=== PATIENT | female | born 1975 | race Caucasian/White ===

== ENCOUNTER 2016-05-28 16:50 | Emergency (ER) | payer SELFPAY ==
[2016-05-28 17:23] VITALS: BP 123/77
--- NOTE | 2016-05-28 17:33 | ER Document Report ---
ED Medical Screen (RME) - General Stated Complaint: VAGINAL PAIN Mode of Arrival: Ambulatory Information source: Patient Notes: 41 y/o F presents to ED c/o pain to genital area. Reports hx of herpes and states feels like flare-up. I have greeted and performed a rapid initial assessment of this patient. A comprehensive ED assessment and evaluation of the patient, analysis of test results and completion of the medical decision making process will be conducted by additional ED providers. TRAVEL OUTSIDE OF THE [place] IN LAST 30 DAYS: No - Related Data Allergies/Adverse Reactions: codeine [Codeine] Allergy (Mild, Verified 05/28/16 17:32) Past Medical History Neurological Medical History: Reports: Hx Migraine Past Surgical History: Reports: Hx Tubal Ligation - Immunizations Hx Diphtheria, Pertussis, Tetanus Vaccination: No Physical Exam - Vital signs Vitals: Temp Pulse Resp BP Pulse Ox 98.2 F 80 16 123/77 96 05/28/16 17:22 05/28/16 17:22 05/28/16 17:22 05/28/16 17:22 05/28/16 17:22 - General General appearance: Appears well, Alert In distress: None Course - Vital Signs Vital signs: Temp Pulse Resp BP Pulse Ox 98.2 F 80 16 123/77 96 05/28/16 17:22 05/28/16 17:22 05/28/16 17:22 05/28/16 17:22 05/28/16 17:22
--- NOTE | 2016-05-28 18:38 | ER Document Report ---
ED GI/ - General Chief Complaint: Vaginal Pain Stated Complaint: VAGINAL PAIN Mode of Arrival: Ambulatory Information source: Patient TRAVEL OUTSIDE OF THE [place] IN LAST 30 DAYS: No - HPI Patient complains to provider of: Vaginal pain Onset: This morning Timing/Duration: Gradual Quality of pain: Burning, Sharp Severity at maximum: Severe Severity in ED: Moderate Context: denies: , Recent trauma Location: Vaginal, Vulvar Vaginal bleeding (Compared to normal period): None Menstrual period history: denies: Associated symptoms: None Exacerbated by: Movement, Other - URINATION Relieved by: Denies Similar symptoms previously: Yes - HERPES GENITALIS Recently seen / treated by doctor: No - Related Data Allergies/Adverse Reactions: codeine [Codeine] Allergy (Mild, Verified 05/28/16 17:32) Past Medical History - General Information source: Patient - Social History Smoking Status: Current Every Day Smoker Chew tobacco use (# tins/day): No Frequency of alcohol use: None Drug Abuse: None Lives with: Spouse/Significant other Family History: Reviewed & Not Pertinent Patient has suicidal ideation: No Patient has homicidal ideation: No - Past Medical History Cardiac Medical History: Reports: None Pulmonary Medical History: Reports: None Neurological Medical History: Reports: Hx Migraine Endocrine Medical History: Reports: None Renal/ Medical History: Reports: None, Other - HSV II. Denies: Hx Peritoneal Dialysis Malignancy Medical History: Reports: None GI Medical History: Reports: None Musculoskeltal Medical History: Reports None Psychiatric Medical History: Reports: None Surgical Hx: Negative Past Surgical History: Reports: Hx Tubal Ligation - Immunizations Hx Diphtheria, Pertussis, Tetanus Vaccination: No Review of Systems - Review of Systems Constitutional: No symptoms reported. denies: Chills, Fever EENT: No symptoms reported Cardiovascular: No symptoms reported Respiratory: No symptoms reported Gastrointestinal: No symptoms reported Genitourinary: See HPI Female Genitourinary: See HPI Musculoskeletal: No symptoms reported Skin: See HPI Neurological/Psychological: No symptoms reported Physical Exam - Vital signs Vitals: Temp Pulse Resp BP Pulse Ox 98.2 F 80 16 123/77 96 05/28/16 17:22 05/28/16 17:22 05/28/16 17:22 05/28/16 17:22 05/28/16 17:22 Interpretation: Normal - General General appearance: Appears well, Alert In distress: None - HEENT Head: Normocephalic Eyes: Normal Ears: Normal Nasal: Normal Mouth/Lips: Normal Mucous membranes: Normal - Respiratory Respiratory status: No respiratory distress - Cardiovascular Rhythm: Regular - Genitourinary Notes: Examination omitted at patient's request. - Extremities General upper extremity: Normal inspection General lower extremity: Normal inspection - Neurological Neuro grossly intact: Yes Cognition: Normal Orientation: AAOx4 - Psychological Associated symptoms: Normal affect, Normal mood - Skin Skin Temperature: Warm Skin Moisture: Dry Skin Color: Normal Skin Turgor: Elastic Course - Vital Signs Vital signs: Temp Pulse Resp BP Pulse Ox 98.2 F 80 16 123/77 96 05/28/16 17:22 05/28/16 17:22 05/28/16 17:22 05/28/16 17:22 05/28/16 17:22 Discharge - Discharge Clinical Impression: Herpes genitalis Qualifiers: Herpes simplex infection site: vulvovaginitis Qualified Code(s): A60.04 - Herpesviral vulvovaginitis Condition: Stable Disposition: HOME, SELF-CARE Instructions: Acyclovir ([facility]), Genital Herpes ([facility]) Prescriptions: Acyclovir [Acyclovir 400 mg Tablet] 400 mg PO TID #20 tablet Lidocaine HCl [Xylocaine 2% Jelly 5 ml Tube] 5 ml MM DAILYP PRN #1 jel PRN Reason:
== END 2016-05-28 18:50 | disposition home or self-care (01) ==
LOC: ER 16:50
DX: A60.04 Herpesviral vulvovaginitis (principal); R10.2 Pelvic and perineal pain; F17.200 Nicotine dependence, unspecified, uncomplicated; Z88.5 Allergy status to narcotic agent
CPT/HCPCS: 99283

== ENCOUNTER 2019-05-24 09:40 | Emergency (ER) | payer SELFPAY ==
[2019-05-24] MEDS ORDERED: ONDANSETRON HCL INJ/PF 4 MG/2 ML SDV IV ONE (10:06)
[2019-05-24] MEDS ORDERED: NORMAL SALINE 1000 ML 1,000 ML IV ONE (10:06)
--- NOTE | 2019-05-24 10:08 | ER Document Report ---
ED Medical Screen (RME) - General Chief Complaint: Cold Symptoms Stated Complaint: COUGH/DIZZINESS/CHILLS/NAUSEA Time Seen by Provider: 05/24/19 10:02 Mode of Arrival: Ambulatory Information source: Patient Notes: 44-year-old female patient presenting to the emergency department with cough, congestion, fevers, nausea. Patient reports symptoms started approximately 4 days ago. She states she has been taking all the lify-poh-xkwsznl medications that she can take however her symptoms have not gotten any better. Patient reports she can barely keep any water down due to her nausea. She denies any chronic medical conditions, denies any daily medications. Coarse rhonchi noted on auscultation. No wheezing. I have greeted and performed a rapid initial assessment of this patient. A com prehensive ED assessment and evaluation of the patient, analysis of test results and completion of the medical decision making process will be conducted by additional ED providers. I have specifically instructed the patient or family members with the patient to immediately return to any nursing staff should anything change in the patient's condition or with their chief complaint. TRAVEL OUTSIDE OF THE [place] IN LAST 30 DAYS: No - Related Data Allergies/Adverse Reactions: codeine [Codeine] Allergy (Mild, Verified 05/24/19 09:58) Home Medications: no home meds Past Medical History - Social History Chew tobacco use (# tins/day): No Drug Abuse: None Neurological Medical History: Reports: Hx Migraine Renal/ Medical History: Denies: Hx Peritoneal Dialysis Past Surgical History: Reports: Hx Tubal Ligation - Immunizations Hx Diphtheria, Pertussis, Tetanus Vaccination: No
[2019-05-24 10:38] LABS: APPEARANCE,URINE CLEAR; BILIRUBIN,URINE NEGATIVE (NEGATIVE); COLOR,URINE YELLOW; GLUCOSE, URINE NEGATIVE (NEGATIVE); KETONES,URINE NEGATIVE (NEGATIVE); PROTEIN,URINE NEGATIVE (NEGATIVE); URINE SPECIFIC GRAVITY 1.012; UROBILINOGEN,URINE NEGATIVE mg/dL (<2.0)
[2019-05-24] MEDS ORDERED: IBUPROFEN 800 MG TABLET PO ONE (10:46)
[2019-05-24] MEDS ORDERED: ONDANSETRON 4 MG TAB.RAPDIS PO ONE (10:46)
[2019-05-24 10:47] LABS: A TYPE INFLUENZA AG NEGATIVE (NEGATIVE); B INFLUENZA AG NEGATIVE (NEGATIVE)
--- NOTE | 2019-05-24 10:47 | ER Document Report ---
HPI - HPI Patient complains to provider of: Cough congestion nausea Time Seen by Provider: 05/24/19 10:02 Onset: Other - 4 days Quality of pain: Achy Pain Level: 3 Context: 44-year-old female with no prior history relatively healthy presents emergency department with complaints of sore throat, productive cough congestion, body aches, and nausea. She reports her sore throat is gone. She reports she coughing up some green sputum. Reports decreased appetite because she is so nauseated. Denies fever or diarrhea. Denies pain with void. Reports she has been taking zeeu-dai-wdmzibd medications without relief of symptoms. Associated Symptoms: Body/muscle aches, Productive cough, Nausea Exacerbated by: Denies Relieved by: Denies Similar symptoms previously: No Recently seen / treated by doctor: No - REPRODUCTIVE Reproductive: DENIES: : Past Medical History - General Information source: Patient Last Menstrual Period: 2 years ago - Social History Smoking Status: Current Every Day Smoker Cigarette use (# per day): Yes Chew tobacco use (# tins/day): No Drug Abuse: None Occupation: Office Family History: Reviewed & Not Pertinent Patient has suicidal ideation: No Patient has homicidal ideation: No Neurological Medical History: Reports: Hx Migraine Renal/ Medical History: Denies: Hx Peritoneal Dialysis Past Surgical History: Reports: Hx Tubal Ligation - Immunizations Hx Diphtheria, Pertussis, Tetanus Vaccination: No Vertical Provider Document - CONSTITUTIONAL Agree With Documented VS: Yes Exam Limitations: No Limitations General Appearance: WD/WN, No Apparent Distress - INFECTION CONTROL TRAVEL OUTSIDE OF THE [place] IN LAST 30 DAYS: No - HEENT HEENT: Atraumatic, Normal ENT Exam, Normocephalic, PERRLA. negative: Conjuctival Injection, Pharyngeal Erythema, Tympanic Membrane Red, Tympanic M embrane Bulging - NECK Neck: Normal Inspection, Supple. negative: Lymphadenopathy-Left, Lymphadenopathy-Right - RESPIRATORY Respiratory: Breath Sounds Normal, No Respiratory Distress - CARDIOVASCULAR Cardiovascular: Regular Rate - GI/ABDOMEN Gastrointestinal: Abdomen Soft, Abdomen Non-Tender - BACK Back: negative: CVA Tenderness-Right, CVA Tenderness-Left - MUSCULOSKELETAL/EXTREMETIES Musculoskeletal/Extremeties: RONNA MAYA - NEURO Level of Consciousness: Awake, Alert, Appropriate Motor/Sensory: No Motor Deficit - DERM Integumentary: Warm, Dry, No Rash Course - Re-evaluation Re-evalutation: 05/24/19 11:29 Laboratory 05/24/19 05/24/19 10:10 10:10 Urine Color YELLOW Urine Appearance CLEAR Urine pH 5.0 Ur Specific [place] 1.012 Urine Protein NEGATIVE Urine Glucose (UA) NEGATIVE Urine Ketones NEGATIVE Urine Blood NEGATIVE Urine Nitrite (Reflex) NEGATIVE Urine Bilirubin NEGATIVE Urine Urobilinogen NEGATIVE Leukocyte Esterase Rfl MODERATE H Urine RBC (Auto) 2 Urine WBC (Reflex) 6 Squamous Epi Cells Auto 2 Urine Mucus (Auto) RARE Urine Ascorbic Acid 20 H Urine HCG, Qual NEGATIVE Influenza A (Rapid) NEGATIVE Influenza B (Rapid) NEGATIVE Chest X-Ray 05/24/19 10:07 IMPRESSION: Chronic interstitial changes with ill-defined opacities within the left mid lung, possibly superimposed pneumonia. No dense consolidation. No significant effusion. 05/24/19 11:42 44-year-old female relatively healthy presents with productive cough nausea body aches for the past 4 days. UA with moderate leukocytes patient denies pain with void denies urinary frequency. Very few WBCs. Chest x-ray shows left mid pneumonia. Patient was instructed on these results. She is drinking p.o. fluids reports she feels a little bit better. No active coughing noted. Respiratory rate even unlabored. The patient was instructed on amoxicillin doxy Tessalon Perles and Zofran. Instructed on the importance of push fluids quit smoking take meds as prescribed. Patient does not have a primary care provider because she does not have insurance. She was instructed to return here for any concerns worsening symptoms. She verbalized understanding to all instructions patient was also [facility]. - Vital Signs Vital signs: Temp Pulse Resp BP Pulse Ox 97.9 F 90 16 113/79 95 05/24/19 10:00 05/24/19 10:00 05/24/19 10:00 05/24/19 10:00 05/24/19 10:00 - Laboratory Laboratory results interpreted by me: 05/24/19 10:10 Leukocyte Esterase Rfl MODERATE H Urine Ascorbic Acid 20 H - Diagnostic Test Radiology reviewed: Image reviewed, Reports reviewed Discharge - Discharge Clinical Impression: Cough, Pneumonia, Nausea Condition: Stable Disposition: HOME, SELF-CARE Instructions: Amoxicillin ([facility]), Antinausea Medication ([facility]), Doxycycline ([facility]), Use of Irao-Umi-Gvckgfa Ibuprofen ([facility]), Pneumonia ([facility]), Tessalon Perles ([facility]) Additional Instructions: *You have been evaluated for a cough, body aches, nausea, pneumonia *Your flu test was negative. Your chest x-ray indicates pneumonia *Take medication as prescribed *Increase fluids *Monitor your temperature, take Tylenol or motrin as indicated *Quit smoking *Follow up with a primary care provider within 1 week for recheck *Return to ED for increasing worsening condition, changes, needs, difficulty breathing, concerns Prescriptions: Amoxicillin Trihydrate [Amoxil 500 mg Capsule] 1,000 mg PO TID #60 capsule Doxycycline Monohydrate [Monodox] 100 mg PO BID #20 capsule Benzonatate [Tessalon Perles 100 mg Capsule] 100 mg PO ASDIR PRN #20 capsule PRN Reason: Forms: Smoking Cessation Education, Return to Work Referrals: [facility] [Provider Group] - Follow up in 3-5 days (call for an appointment)
--- NOTE | 2019-05-24 10:48 | RADIOLOGY REPORT (SQ) ---
EXAM DESCRIPTION: CHEST 2 VIEWS COMPLETED DATE/TIME: 05/24/2019 10:28 am REASON FOR STUDY: cough/fever COMPARISON: 04/28/2013 EXAM PARAMETERS: NUMBER OF VIEWS: two views TECHNIQUE: Digital Frontal and Lateral radiographic views of the chest acquired. RADIATION DOSE: NA LIMITATIONS: none FINDINGS: LUNGS AND PLEURA: No dense consolidation. Chronic interstitial changes with ill-defined opacities within the left mid lung. No pleural effusion or pneumothorax. Hyperinflation. MEDIASTINUM AND HILAR STRUCTURES: No masses or contour abnormalities. HEART AND VASCULAR STRUCTURES: Heart normal size. No evidence for failure. BONES: No acute findings. HARDWARE: None in the chest. OTHER: No other significant finding. IMPRESSION: Chronic interstitial changes with ill-defined opacities within the left mid lung, possib ly superimposed pneumonia. No dense consolidation. No significant effusion. TECHNICAL DOCUMENTATION: JOB ID: [id number] [employer]- All Rights Reserved Reading location - IP/workstation name: [email or web address]
[2019-05-24] MEDS ORDERED: ONDANSETRON ODT 4 MG TAB (6 TAB/ER DISP) PO PRN (11:36)
[2019-05-24] MEDS ORDERED: DOXYCYCLINE HYCLATE 100 MG TABLET PO ONE (11:36)
[2019-05-24] MEDS ORDERED: AMOXICILLIN TRIHYDRATE 500 MG CAPSULE PO ONE (11:36)
[2019-05-24 12:02] VITALS: BP 105/73
== END 2019-05-24 12:11 | disposition home or self-care (01) ==
LOC: ER 09:40
DX: J18.9 Pneumonia, unspecified organism (principal); R05 Cough; R11.0 Nausea; R63.0 Anorexia; M79.10 Myalgia, unspecified site; F17.210 Nicotine dependence, cigarettes, uncomplicated
CPT/HCPCS: 99283; 87086; 81025; 87088; 81001; 87804; 71046; S0119; 87186

== ENCOUNTER 2019-11-16 07:39 | Emergency (ER) | payer SELFPAY ==
[2019-11-16] MEDS ORDERED: KETOROLAC TROMETHAMINE 60 MG/2 ML SDV IM ONE (08:22)
[2019-11-16] MEDS ORDERED: METHOCARBAMOL 750 MG TABLET PO ONE (08:22)
[2019-11-16] MEDS ORDERED: HYDROMORPHONE HCL INJ/PF 2 MG/ML AMPULE IV ONE (08:34)
--- NOTE | 2019-11-16 08:36 | ER Document Report ---
ED General - General Chief Complaint: Shoulder Pain Stated Complaint: SHOULDER/CHEST PAIN Time Seen by Provider: 11/16/19 08:22 Primary Care Provider: VIC,NO [Primary Care Provider] - Follow up as needed Notes: Were febrile male presents with right shoulder pain worse with movement since last night but then radiates across to her left shoulder blade "hemoglobin" with severe pain on movement sitting or left arm movement. No chest pain no breast pain no abdominal pain no vomiting. No itching drug use or fever. TRAVEL OUTSIDE OF THE [place] IN LAST 30 DAYS: No - Related Data Allergies/Adverse Reactions: codeine [Codeine] Allergy (Mild, Verified 05/24/19 09:58) Past Medical History - General Information source: Patient - Social History Smoking Status: Current Every Day Smoker Chew tobacco use (# tins/day): No Smoking Education Provided: Yes - The patient ED visit today was directly related to their abuse of tobacco. Frequency of alcohol use: None Drug Abuse: None Family History: Reviewed & Not Pertinent Neurological Medical History: Reports: Hx Migraine Renal/ Medical History: Denies: Hx Peritoneal Dialysis Past Surgical History: Reports: Hx Tubal Ligation - Immunizations Hx Diphtheria, Pertussis, Tetanus Vaccination: No Review of Systems - Review of Systems Notes: REVIEW OF SYSTEMS GEN: Denies fever, chills, weight loss ENT: Denies sore throat, nasal discharge, ear pain EYES: Denies blurry vision, eye pain, discharge CV: Pain RESP: Denies cough, shortness of breath, wheezing GI: Denies abdominal pain, nausea, vomiting, diarrhea MSK: Shoulder pain SKIN: Denies rash, skin lesions LYMPH: Denies swollen glands/lymph nodes NEURO: Denies headache, focal weakness or numbness, dizziness PSYCH: Denies depression, suicidal or homicidal ideation PHYSICAL EXAMINATION General: No acute distress, well-nourished Head: Atraumatic, normocephalic ENT: Mouth normal, oropharynx moist, no exudates or tonsillar enlargement Eyes: Conjunctiva normal, pupils equal, lids normal Neck: No JVD, supple, no guarding CVS: Normal rate, regular rhythm, no murmurs Resp: No resp distress, equal and normal breath sounds bilaterally GI: Nondistended, soft, no tenderness to palpation, no rebound or guarding Ext: Extreme tenderness and range of motion pain on both shoulders without appreciable deformity. Left clavicle tenderness again with no deformity. No warmth over any joint. Muscles appear normal with no compartment swelling or tenderness on the skin/musculature Skin: No rash, warm Lymphatic: No lymphadeopathy noted Neuro: Awake, alert. Face symmetric. GCS 15. Physical Exam - Vital signs Vitals: Temp Pulse Resp BP Pulse Ox 98.4 F 91 17 112/65 98 11/16/19 07:51 11/16/19 07:51 11/16/19 07:51 11/16/19 07:51 11/16/19 07:51 Course - Re-evaluation Re-evalutation: 11/16/19 15:16 Presents with exquisite pain and tenderness in both shoulders rating from right to left. Her EKG is normal troponin negative doubt cardiac source. Did discuss pamela with her injection drug use which she denies, for the possibility of multiple septic joints myositis etc. Did a CT chest which did not show significant infiltrate, pneumonia or soft tissue abnormality of the upper chest and shoulder girdles bilaterally Better with pain meds Doubt PE We will discharge with oxycodone and ice, could certainly be from lifting heavy objects and muscle strain We will follow-up with primary care I have discussed with the patient there likely diagnosis, aftercare plan, follow-up plans and my usual and customary return precautions. They verbalized understanding of this. Ge 11/16/19 15:16 - Vital Signs Vital signs: Temp Pulse Resp BP Pulse Ox 98.4 F 91 17 119/84 97 11/16/19 07:51 11/16/19 07:51 11/16/19 11:17 11/16/19 11:17 11/16/19 11:17 - Laboratory Result Diagrams: 11/16/19 08:50 11/16/19 08:50 Laboratory results interpreted by me: 11/16/19 08:50 Chloride 111 H Discharge - Discharge Clinical Impression: Left anterior shoulder pain Chest pain Qualifiers: Chest pain type: unspecified Qualified Code(s): R07.9 - Chest pain, unspecified Condition: Good Disposition: HOME, SELF-CARE Instructions: Chest Wall Pain ([facility]) Prescriptions: Oxycodone HCl/Acetaminophen [Percocet 5-325 mg Tablet] 1 - 2 tab PO Q4H PRN #15 tablet PRN Reason: Referrals: LOCALMD,NO [Primary Care Provider] - Follow up as needed
[2019-11-16 09:12] LABS: ABSOLUTE BASOPHILS # (AUTO) 0.1 10^3/uL (0.0-0.2); ABSOLUTE EOSINOPHILS # (AUTO) 0.4 10^3/uL (0.0-0.6); ABSOLUTE MONOCYTES (AUTO) 0.9 10^3/uL (0.1-1.4); ABSOLUTE NEUT (AUTO) 6.7 10^3/uL (1.7-8.2); BASOPHILS % (AUTO) 0.7 % (0-2); EOSINOPHILS % (AUTO) 4.1 % (0-6); LYMPHOCYTES % (AUTO) 20.2 % (13-45); MEAN CORPUSCULAR HEMOGLOBIN 30.7 pg (27.0-33.4); MEAN CORPUSCULAR HGB CONC 34.8 g/dL (32.0-36.0); MEAN CORPUSCULAR VOLUME 89 fl (80-97); MONOCYTES % (AUTO) 8.7 % (3-13); PLATELET COUNT 323 10^3/uL (150-450); RED BLOOD COUNT 4.86 10^6/uL (3.72-5.28); RED CELL DISTRIBUTION WIDTH 13.9 % (11.5-14.0); SEGMENTED NEUTROPHILS % (AUTO) 66.3 % (42-78); TOTAL CELLS COUNTED % (AUTO) 100 %; WHITE BLOOD COUNT 10.1 10^3/uL (4.0-10.5)
[2019-11-16 09:17] LABS: ANION GAP 5 (5-19); BLOOD UREA NITROGEN 12 mg/dL (7-20); CALCIUM 9.2 mg/dL (8.4-10.2); CARBON DIOXIDE 22 mmol/L (22-30); CHLORIDE 111 mmol/L (98-107); GLUCOSE 99 mg/dL (75-110); POTASSIUM 4.1 mmol/L (3.6-5.0)
--- NOTE | 2019-11-16 09:18 | EKG REPORT ---
SEVERITY:- NORMAL ECG - SINUS RHYTHM : Confirmed by: Francia Kirby 16-Nov-2019 09:17:34
--- NOTE | 2019-11-16 10:08 | RADIOLOGY REPORT (SQ) ---
EXAM DESCRIPTION: CT CHEST WITH IMAGES COMPLETED DATE/TIME: 11/16/2019 9:37 am REASON FOR STUDY: L clav/shlder pn osteo/myositis? COMPARISON: None. TECHNIQUE: CT scan of the chest performed using helical scanning technique with dynamic intravenous contrast injection. Images reviewed with lung, soft tissue and bone windows. Reconstructed coronal and sagittal MPR and MIP images reviewed. All images stored on PACS. All CT scanners at this facility use dose modulation, iterative reconstruction, and/or weight based d osing when appropriate to reduce radiation dose to as low as reasonably achievable (ALARA). [facility]: Dose Right [facility]: CareDose [facility]: Dose Right [facility]: Teradose 4D [facility]: [employer] CONTRAST TYPE AND DOSE: contrast/concentration: Isovue 350.00 mmol/ml; Total Contrast Delivered: 79. 0 ml; Total Saline Delivered: 53.4 ml RENAL FUNCTION: None required. The patient is less than 50 years old. RADIATION DOSE: CT Rad equipment meets quality standard of care and radiation dose reduction techniq ues were employed. CTDIvol: 7.1 mGy. DLP: 261 mGy-cm. . LIMITATIONS: None. FINDINGS: LUNGS AND PLEURA: No opacities, nodules, masses. No pneumothorax. No effusions. HILAR AND MEDIASTINAL STRUCTURES: No identified masses or abnormal nodes. HEART AND VASCULAR STRUCTURES: No aneurysm or dissection. No central pulmonary emboli. No pericardi al effusion. HARDWARE: None in the chest. UPPER ABDOMEN: No significant findings. Limited exam. THYROID AND OTHER SOFT TISSUES: No masses. No adenopathy. BONES: No significant finding. OTHER: No other significant finding. IMPRESSION: NORMAL CT OF THE CHEST WITH IV CONTRAST. TECHNICAL DOCUMENTATION: JOB ID: [id number] Quality ID # [id number]: Final reports with documentation of one or more dose reduction techniques (e.g., Au tomated exposure control, adjustment of the mA and/or kV according to patient size, use of iterative reconstruction technique) 2010 [employer]- All Rights Reserved Reading location - IP/workstation name: [email or web address]
[2019-11-16 11:24] VITALS: BP 119/84
== END 2019-11-16 11:24 | disposition home or self-care (01) ==
LOC: ER 07:39
DX: M25.512 Pain in left shoulder (principal); M25.511 Pain in right shoulder; R07.9 Chest pain, unspecified; F17.200 Nicotine dependence, unspecified, uncomplicated; Z88.6 Allergy status to analgesic agent; Z88.5 Allergy status to narcotic agent
CPT/HCPCS: 93005; 99284; 96374; 36415; 85025; 80048; 71260; 93010; J1170